=== PATIENT | male | born 1990 | race Caucasian/White ===

== ENCOUNTER 2018-02-18 14:24 | Emergency (ER) | payer MEDICAID ==
[~2018-02-18] VITALS: Ht 162.6 cm; Wt 102.7 kg
[2018-02-18 14:40] VITALS: BP 138/81
[2018-02-18 16:35] VITALS: BP 130/81
== END 2018-02-18 16:36 | disposition home or self-care (01) ==
LOC: MED 14:24
DX: M54.2 Cervicalgia (principal); M54.9 Dorsalgia, unspecified
CPT/HCPCS: 99282